=== PATIENT | male | born 1985 | race Hispanic/Latino ===

== ENCOUNTER 2022-02-05 05:11 | Emergency (ER) | payer OTHER ==
[2022-02-05] MEDS ORDERED: levETIRAcetam 500 MG/5 ML VIAL ONE (05:49)
== END 2022-02-05 06:31 ==
LOC: ERS 05:11 → EEVIPCON 05:11 → ERS 06:31
DX: G40.909 Epilepsy, unspecified, not intractable, without status epilepticus (principal); I10 Essential (primary) hypertension
CPT/HCPCS: 96374; J1953